=== PATIENT | female | born 1955 | race Caucasian/White ===

== ENCOUNTER → 2024-07-31 | Outpatient (CLI) | payer MEDICARE, OTHER ==
[~2024-07-31] MED LIST: IODINE/POTASSIUM IODIDE 14 ML BOTTLE ONE
--- NOTE | 2024-08-05 23:43 | NM ---
EXAMINATION TYPE: NM DatScan Brain SPECT DATE OF EXAM: 07/31/2024 COMPARISON: NONE CLINICAL INDICATION: Female, 69 years old with history of R25.1 TREMOR, UNSPECIFIED; TECHNIQUE: 10 drops of Lugol's solution was administered 1 hour prior to injection as a thyroid bloc shayna agent. After the administration of 4.37 mCi I-123 Ioflupane DaTscan. Images obtained 3 hours p ost injection. SPECT images of the brain were acquired with axial and coronal reconstructions. FINDINGS: The DaTSCAN demonstrates normal uptake of tracer throughout the striata. Consequently there is no evidence of loss of the pre-synaptic dopaminergic terminals on this investigation. IMPRESSION: This normal appearance is against a diagnosis of idiopathic Parkinson?s disease (PD) or a Parkinsonian syndrome (PS) and is seen in healthy individuals and also patients with essential tremor (ET), drug induced parkinsonism, and vascular pseudo-parkinsonism. [facility], , 08/05/2024 11:41 PM
== END | disposition home or self-care (01) ==
LOC: RADNMMAIN 10:20
PROVIDERS: ATTEND Psychiatry & Neurology Neurology
DX: R25.1 Tremor, unspecified
CPT/HCPCS: 78803